=== PATIENT | female | born 1980 | race Caucasian/White ===

== ENCOUNTER 2023-03-16 05:31 | Outpatient (CLI) | payer BC ==
[~2023-03-16] VITALS: Ht 165.1 cm; Wt 79.5 kg
[2023-03-16] MEDS ORDERED: ALPR0.25 PO (09:52)
[2023-03-16] MEDS ORDERED: METH20TA PO (09:52)
== END 2023-03-16 10:14 | disposition home or self-care (01) ==
LOC: PREOP 05:31
PROVIDERS: ATTEND Otolaryngology Otolaryngology/Facial Plastic Surgery
DX: Z01.818 Encounter for other preprocedural examination (principal)

== ENCOUNTER 2023-03-23 06:10 | Day surgery (SDC) | payer BC ==
[~2023-03-23] VITALS: Ht 165.1 cm; Wt 79.5 kg
[2023-03-23] VITALS (10 sets, daily range): BP systolic 112–132; BP diastolic 70–91
[~2023-03-23 06:10] MED LIST: ALPR0.25 PO; METH20TA PO
[2023-03-23] MEDS: LACTATED RINGERS 1,000 ML 1,000 ML IV PRN ×2 (06:54→08:00)
[2023-03-23] MEDS ORDERED: dexAMETHasone INJ 10 MG/ML 1 ML VIAL ONE (06:55)
[2023-03-23] MEDS ORDERED: LIDOCAINE PF 2% 5 ML VIAL ONE (06:55)
[2023-03-23] MEDS ORDERED: GLYCOPYRROLATE INJ 0.2 MG/ML 2 ML VIAL ONE (06:55)
[2023-03-23] MEDS ORDERED: ONDANSETRON INJECTION 4 MG/2 ML (SDV) ONE ×2 (06:55→08:29)
[2023-03-23] MEDS ORDERED: ROCURONIUM 50 MG/5 ML VIAL IV ONE (06:55)
[2023-03-23] MEDS ORDERED: proPOfol INJECTION 200 MG/20 ML VIAL IV ONE (06:55)
[2023-03-23] MEDS ORDERED: fentaNYL INJECTION 100 MCG/2 ML VIAL ONE ×2 (06:55→08:29)
[2023-03-23] MEDS ORDERED: MIDAZOLAM INJ 2 MG/2 ML VIAL ONE (06:55)
[2023-03-23] MEDS ORDERED: NEOSTIGMINE 1 MG/1ML 10 ML VIAL ONE (06:56)
--- NOTE | 2023-03-23 06:57 | Progress Note-Pre Operative ---
Pre-Operative Progress Note Date of Available H&P: Mar 23, 2023 Date H&P Reviewed: Mar 23, 2023 Time H&P Reviewed: 06:30 History & Physical: H&P Reviewed, Patient Examed, No changes noted Changes from last HP none Pre-Operative Diagnosis: Devaited Nasal Septum, Bialt Hyper of INf Turbs GRACE MAXWELL MD Mar 23, 2023 06:57
--- NOTE | 2023-03-23 06:57 | Progress Note-Post Operative ---
Post-Operative Progess Note Surgeon (s)/Craft Artist (s) Surgeon GRACE MAXWELL MD Craft Artist n/a Pre-Operative Diagnosis Devaited Nasal Septum, Bialt Hyper of INf Turbs Post-Operative Diagnosis same Post-Op Procedure Note Date of Procedure: Mar 23, 2023 Name of Procedure Performed: Nasal Septoplasty, Bialt Red of Inf Turbs Description & Findings Description and Findings: n/a Anesthesia Type get Estimated Blood Loss minimal Packing none. Specimen(s) collected/removed nasal septum GRACE MAXWELL MD Mar 23, 2023 06:57
[2023-03-23] MEDS ORDERED: D5 1/2NS + KCL 20 MEQ/L 1000ML 1,000 ML IV SCH (07:00)
[2023-03-23] MEDS ORDERED: PROMETHAZINE INJ 25 MG/ML VIAL IVP PRN (07:00)
[2023-03-23] MEDS ORDERED: COCAINE 4% TOPICAL SOLN 2 ML SYR ONE (07:01)
[2023-03-23] MEDS ORDERED: PHENYLEPHRINE 0.5% (REGULAR) NASAL SPRAY 15 ML ONE (07:02)
[2023-03-23] MEDS ORDERED: LIDOCAINE 2% w/EPI 1:100,000 20 ML VIAL ONE (07:02)
[2023-03-23 07:03] LABS: BASOPHILS # (AUTO) 0.1 10^3/uL (0.0-0.1); BASOPHILS % (AUTO) 1 % (0-10); EOSINOPHILS # (AUTO) 0.3 10^3/uL (0.0-0.3); EOSINOPHILS % (AUTO) 3 % (0-10); HEMATOCRIT 42 % (35-52); HEMOGLOBIN 13.8 g/dL (11.5-16.0); LYMPHOCYTES # (AUTO) 2.5 10^3/uL (1.0-4.0); LYMPHOCYTES % (AUTO) 24 % (12-44); MEAN CORPUSCULAR HEMOGLOBIN 29 pg (25-34); MEAN CORPUSCULAR HGB CONC 33 g/dL (32-36); MEAN CORPUSCULAR VOLUME 87 fL (80-99); MEAN PLATELET VOLUME 8.6 fL (9.0-12.2); MONOCYTES # (AUTO) 0.8 10^3/uL (0.0-1.0); MONOCYTES % (AUTO) 8 % (0-12); NEUTROPHILS # (AUTO) 6.7 10^3/uL (1.8-7.8); NEUTROPHILS % (AUTO) 64 % (42-75); PLATELET COUNT 255 10^3/uL (130-400); WHITE BLOOD COUNT 10.4 10^3/uL (4.3-11.0)
[2023-03-23 07:15] LABS: CALCIUM 9.3 MG/DL (8.5-10.1)
[2023-03-23 07:19] LABS: CREATININE SERUM 0.75 MG/DL (0.60-1.30)
[2023-03-23] MEDS ORDERED: PHENYLEPHRINE 100 MCG/ML 10 ML (ANESTHESIA) SYR ONE (07:49)
[2023-03-23] MEDS ORDERED: SEVOFLURANE (ULTANE) 15 ML INHAL SOLN ONE (08:16)
--- NOTE | 2023-03-23 08:26 | Anesthesia-General Post-Op ---
General Patient Condition Mental Status/LOC: Same as Preop Cardiovascular: Satisfactory Nausea/Vomiting: Absent Respiratory: Satisfactory Pain: Controlled Complications: Absent Post Op Complications Complications None Follow Up Care/Instructions Patient Instructions None needed. Anesthesia/Patient Condition Patient Condition Patient is doing well, no complaints, stable vital signs, no apparent adverse anesthesia problems. No complications reported per nursing. ANURADHA JACOBS CRNA Mar 23, 2023 08:26
[2023-03-23] MEDS ORDERED: fentaNYL INJECTION 100 MCG/2 ML VIAL IVP ONE (08:30)
[2023-03-23] MEDS ORDERED: ONDANSETRON INJECTION 4 MG/2 ML (SDV) IVP PRN (08:30)
[2023-03-23] MEDS ORDERED: oxyCODONE/ACETAMINOPHEN 5/325MG TABLET PO ONE (10:15)
[2023-03-23] MEDS ORDERED: oxyCODONE/ACETAMINOPHEN 5/325MG TABLET ONE (10:18)
== END 2023-03-23 10:42 | disposition home or self-care (01) ==
LOC: SDC 06:10
PROVIDERS: ATTEND Otolaryngology Otolaryngology/Facial Plastic Surgery
DX: J34.3 Hypertrophy of nasal turbinates (principal); J34.2 Deviated nasal septum; J35.01 Chronic tonsillitis; J35.8 Other chronic diseases of tonsils and adenoids; Z79.2 Long term (current) use of antibiotics
CPT/HCPCS: 36415; 80048; 84703; 85025; 87081